=== PATIENT | female | born 1990 | race Caucasian/White ===

== ENCOUNTER 2022-08-24 11:30 | Inpatient (IN) | payer BC, SELFPAY ==
[2022-08-24] VITALS (42 sets, daily range): BP systolic 100–194; BP diastolic 56–140; PULSE 72–105; TEMP 36.4–37.2; O2SAT 96–100; BMI 49.8
[2022-08-24 11:28] LABS: ROM Internal Control Test YES-OK TO RESULT pt. (Internal QC)
[2022-08-24 11:29] LABS: ROM Patient Test POSITIVE (Negative)
[2022-08-24] MEDS: Lactated Ringers 1,000 ML 50 ML IV ×2 (12:35→15:00)
[2022-08-24] MEDS: LACTATED RINGERS 500 ML 999 ML IV ×5 (12:40→23:30)
[2022-08-24 12:54] LABS: Absolute Lymphocyte Count 2.42 X10^3/uL (0.83-4.51); Absolute Neutrophil Count 9.1 X10^3/uL (2.0-7.7); Basophil# 0.04 X10^3/uL; Basophil% 0.3 % (0-1); Eosinophil# 0.07 X10^3/uL; Eosinophils% 0.6 % (0-5); Hematocrit 34.8 % (37-47); Hemoglobin 11.6 g/dL (12.0-15.0); Lymphocyte # 2.42 X10^3/ul (0.83-4.51); Lymphocyte % 19.5 % (19-41); Mean Corp Hgb Conc 33.3 g/dL (32-36); Mean Corpuscular Hgb 28.9 pg (27.0-32.0); Mean Corpuscular Volume 86.6 fL (81-99); Mean Platelet Vol. 9.6 fl (6.2-12.0); Monocyte% 5.7 % (0-10); NRBC Flagged by Analyzer 0 % (0-5); Neutrophil # 9.09 X10^3/uL (2.7-7.7); Neutrophil % 73.4 % (47-70); Platelet Count 319 K/mm3 (150-450); RBC Distribution Width CV 13.4 % (11.6-14.6); RBC Distribution Width SD 42.1 fl (35.1-43.9); Red Blood Count 4.02 M/mm3 (4.2-5.4); White Blood Count 12.4 K/mm3 (4.4-11.0)
[2022-08-24 13:16] LABS: Bedside Glucose 88 mg/dL (74-106)
[2022-08-24] MEDS: Oxytocin 15 Units/NS 250ml 15 UNITS/250 ML IV.SOLN 2 UNITS IV (13:28)
[2022-08-24 13:53] LABS: Syphilis Antibodies Non-reactive
[2022-08-24 14:20] LABS: Bedside Glucose 100 mg/dL (74-106)
[2022-08-24] MEDS: Penicillin G 3,000,000 Units 50 ML 100 UNITS IV ×2 (17:24→21:43)
[2022-08-24 17:50] LABS: Bedside Glucose 81 mg/dL (74-106)
[2022-08-24] MEDS: fentaNYL-bupivacaine (epidural) 100 ML BAG EPIDURAL ×2 (18:45→23:15)
--- NOTE | 2022-08-24 21:05 | PCM.HP.OB ---
HPI - General General Date of Admission: 08/24/22 Date of Service: 08/24/22 Chief Complaint: rupture of membranes HPI Narrative EARL PEREZ, is a 2 para 0-0-1-0 who presents at 37-6/7 weeks with spontaneous rupture membranes. She is having some irregular contractions. She denies any vaginal bleeding or leaking of fluid. She has had good movements. Her has been complicated to date by gestational diabetes class A2, she has been on insulin. Is also been complicated by tobacco use early in the , and maternal obesity. Maternal Data Information Final HUMBERTO: 09/08/22 Gestational age: 37 6/7 PFSH PFSH Home Medications aspirin 81 mg chewable tablet 81 mg PO DAILY 08/24/22 [History Last Taken 08/23/22 10:00] insulin NPH isoph U-100 human 100 unit/mL subcutaneous suspension (Novolin N NPH U-100 Insulin isophane) 36 unit subcut BID 08/24/22 [History Last Taken 08/23/22 22:00] vitamins-iron fumarate 65 mg iron-folic acid 1 mg tablet 1 tab PO DAILY 08/24/22 [History Last Taken 08/23/22 10:00] Allergy/AdvReac Type Severity Reaction Status Date / Time No Known Allergies Allergy Verified 08/24/22 20:50 Social History Smoking Status: Former smoker History Elective abortions Hx Para 0 Spontaneous abortions Hx # Term Pregnancies Ectopic pregnancies Hx # Pregnancies Multiple births # of living children ROS Constitutional Constitutional: Denies fatigue, fever(s) or malaise Eyes Eyes: Denies change in vision ENT HEENT: Denies dizziness or headache(s) Cardiovascular Cardiovascular: Denies chest pain, dyspnea or lightheadedness Respiratory/Chest Respiratory/Chest: Denies cough or dyspnea Gastrointestinal Gastrointestinal: Denies change in bowel habits Genitourinary Genitourinary: Denies burning urination or genital lesions Integumentary Integumentary: Denies rash Neurologic Neurologic: Denies confusion, dizziness, headache(s), numbness or weakness Vital Signs Vital Signs Vital Signs: 08/24/22 10:54 08/24/22 10:54 08/24/22 10:54 Temperature Temperature Source Pulse Rate 92 103 H Blood Pressure 127/65 H BP Systolic 127 BP Diastolic 65 Pulse Ox 08/24/22 10:54 08/24/22 10:55 08/24/22 10:55 Temperature Temperature Source Temporal Pulse Rate Blood Pressure BP Systolic BP Diastolic Pulse Ox 97 97 08/24/22 10:55 08/24/22 13:45 08/24/22 13:45 Temperature 98.0 F Temperature Source Pulse Rate 90 Blood Pressure 122/67 H BP Systolic 122 BP Diastolic 67 Pulse Ox 08/24/22 14:27 08/24/22 14:27 08/24/22 14:32 Temperature Temperature Source Pulse Rate 86 86 Blood Pressure BP Systolic BP Diastolic Pulse Ox 96 08/24/22 14:32 08/24/22 14:37 08/24/22 14:37 Temperature Temperature Source Pulse Rate 72 Blood Pressure BP Systolic BP Diastolic Pulse Ox 97 98 08/24/22 14:42 08/24/22 14:42 08/24/22 16:45 Temperature Temperature Source Pulse Rate 82 Blood Pressure 107/58 L BP Systolic 107 BP Diastolic 58 Pulse Ox 97 08/24/22 16:45 08/24/22 17:45 08/24/22 17:58 Temperature 97.5 F L Temperature Source Pulse Rate 74 Blood Pressure 124/78 H BP Systolic 124 BP Diastolic 78 Pulse Ox 08/24/22 17:58 08/24/22 18:04 08/24/22 18:04 Temperature Temperature Source Pulse Rate 100 95 Blood Pressure 141/76 H BP Systolic 141 BP Diastolic 76 Pulse Ox 08/24/22 18:09 08/24/22 18:09 08/24/22 18:14 Temperature Temperature Source Pulse Rate 96 Blood Pressure 133/70 H 134/81 H BP Systolic 133 134 BP Diastolic 70 81 Pulse Ox 08/24/22 18:14 08/24/22 18:15 08/24/22 18:15 Temperature Temperature Source Pulse Rate 96 82 Blood Pressure BP Systolic BP Diastolic Pulse Ox 97 08/24/22 18:18 08/24/22 18:18 08/24/22 18:20 Temperature Temperature Source Pulse Rate 74 95 Blood Pressure 134/82 H BP Systolic 134 BP Diastolic 82 Pulse Ox 08/24/22 18:20 08/24/22 18:23 08/24/22 18:23 Temperature Temperature Source Pulse Rate 92 Blood Pressure 136/74 H BP Systolic 136 BP Diastolic 74 Pulse Ox 98 08/24/22 18:25 08/24/22 18:25 08/24/22 18:28 Temperature Temperature Source Pulse Rate 95 Blood Pressure 132/68 H BP Systolic 132 BP Diastolic 68 Pulse Ox 98 08/24/22 18:28 08/24/22 18:30 08/24/22 18:30 Temperature Temperature Source Pulse Rate 95 98 Blood Pressure BP Systolic BP Diastolic Pulse Ox 99 08/24/22 18:34 08/24/22 18:34 08/24/22 18:35 Temperature Temperature Source Pulse Rate 105 H 103 H Blood Pressure 118/69 BP Systolic 118 BP Diastolic 69 Pulse Ox 08/24/22 18:35 08/24/22 18:38 08/24/22 18:38 Temperature Temperature Source Pulse Rate 86 Blood Pressure 107/56 L BP Systolic 107 BP Diastolic 56 Pulse Ox 98 08/24/22 18:40 08/24/22 18:40 08/24/22 18:43 Temperature Temperature Source Pulse Rate 91 Blood Pressure 100/56 L BP Systolic 100 BP Diastolic 56 Pulse Ox 99 08/24/22 18:43 08/24/22 18:45 08/24/22 18:45 Temperature Temperature Source Pulse Rate 93 89 Blood Pressure BP Systolic BP Diastolic Pulse Ox 99 08/24/22 18:48 08/24/22 18:48 08/24/22 18:50 Temperature Temperature Source Pulse Rate 94 103 H Blood Pressure 130/58 H BP Systolic 130 BP Diastolic 58 Pulse Ox 08/24/22 18:50 08/24/22 18:54 08/24/22 18:54 Temperature Temperature Source Pulse Rate 98 Blood Pressure 118/59 L BP Systolic 118 BP Diastolic 59 Pulse Ox 100 08/24/22 18:59 08/24/22 18:59 08/24/22 19:22 Temperature Temperature Source Temporal Pulse Rate 99 Blood Pressure 114/65 BP Systolic 114 BP Diastolic 65 Pulse Ox 08/24/22 19:23 08/24/22 19:23 08/24/22 19:22 Temperature 97.7 F L Temperature Source Pulse Rate 87 Blood Pressure BP Systolic BP Diastolic Pulse Ox 99 08/24/22 19:24 08/24/22 19:24 08/24/22 20:10 Temperature Temperature Source Temporal Pulse Rate 87 Blood Pressure 118/60 BP Systolic 118 BP Diastolic 60 Pulse Ox 08/24/22 20:10 08/24/22 20:10 08/24/22 20:10 Temperature Temperature Source Pulse Rate 97 Blood Pressure 117/57 L BP Systolic 117 BP Diastolic 57 Pulse Ox 99 08/24/22 20:10 Temperature 99.0 F Temperature Source Pulse Rate Blood Pressure BP Systolic BP Diastolic Pulse Ox Weight Weight: 127.8 kg Body Mass Index (BMI) 49.8 Physical Exam Const alert and no apparent distress General Appearance: cooperative HEENT normocephalic Resp normal respiratory effort Cardio regular rate GI soft to palpation GI Narrative: gravid, nontender, appropriate for gestational age Extremity no calf tenderness General Extremity: edema Skin no wounds Rashes: No rashes noted Psych activity/motor behavior normal Labs Labs Labs: Blood Type A POSITIVE Antibody Screen NEGATIVE Hct 34.8 % (37-47) L Hgb 11.6 g/dL (12.0-15.0) L Syphilis Total Ab Non-reactive Assessment & Plan (1) 37 weeks gestation of : PLAN: Premature rupture membranes, some irregular contractions. Pitocin augmentation. Estimated weight is for less than 4000 g clinically and by last ultrasound and pelvis clinically adequate to expect vaginal delivery may have epidural as needed for pain control (2) Maternal obesity syndrome in third trimester: (3) PROM (premature rupture of membranes):
[2022-08-24 22:25] LABS: Bedside Glucose 83 mg/dL (74-106)
[2022-08-24 23:00] LABS: Bedside Glucose 81 mg/dL (74-106)
[2022-08-25] VITALS (51 sets, daily range): BP systolic 93–133; BP diastolic 53–71; PULSE 84–139; RESP 16–18; TEMP 36–37.7; O2SAT 93–100
[2022-08-25] MEDS: Lactated Ringers 1,000 ML 200 ML IV (00:09)
--- NOTE | 2022-08-25 00:39 | PLAC_PTH ---
PATIENT: EARL PEREZ LOC: [facility] U#:[id number] AGE/SX: 31/F ROOM: WP016 RE08/24/[address]: Dr. Nerissa Bryant MD : 1990 BED: 1 DIS: 08/26/2022 SPEC #: [id number] RECD: 08/25/22 03:24 STATUS: ALPA RETank #: [id number] BHANU: 08/25/22 00:[address]: Nerissa Bryant DEPT: SURGICAL PATHOLOGY RECD BY: Harika Riley ENTERED: 08/25/22 09:49 SP TYPE: PLACENTA OTHR DR: No Primary Care Phys Tissues: Placenta, NOS Procedures: Surgery Specimen Level V HEADER OPERATION: Vaginal delivery PRE-OP DIAGNOSIS: hemorrhage TISSUE SUBMITTED: Placenta MICROSCOPIC DIAGNOSIS Muse placenta (686 gm): Umbilical cord ? trivascular with mild acute funisitis. Placental membranes ? acute chorioamnionitis and acute deciduitis. Placental disc ? acute vasculitis of superficial placental vessels, Romy-Chad change and increased intraparenchymal fibrin plaques. AM:jeff 08/29/2022 MICROSCOPIC DESCRIPTION Slides are reviewed. GROSS DESCRIPTION SPECIMEN: PLACENTA / CLINICAL INFORMATION: A. Weight: 2.77 kg B. Gestational Age: 38 weeks C. Sex: Female PLACENTAL WEIGHT (POST FIXATION): 686 gm PLACENTAL DIMENSIONS: 24.0 x 15.0 x 5.0 cm. A detached piece of placenta is also present measuring 4.5 x 4.0 x 2.0 cm. PLACENTAL SHAPE: Usual ovoid PLACENTAL WEIGHT FOR GESTATIONAL AGE: Over 99th percentile MEMBRANES ? Present. The membranes are fragmented. A. Insertion: Marginal B. Site of rupture from edge: Appears to rupture at the margin of placental disc C. Color of membrane: Bass-dumont D. Abnormalities: None UMBILICAL CORD ? Present. Also present in the container is a detached segment of umbilical cord measuring 35.0 cm in length. A. Color: Bass-dumont B. Insertion: Paracentral C. Length: 20.0 cm D. Diameter: 1.2 cm E. Number of vessels: Three F. Abnormalities: None PLACENTAL DISC - Present A. Color of surface: Bass-dumont B. surface abnormalities: None C. Maternal cotyledons: Intact with minimal tears D. Attached retro placental clot: No clot E. Cut surface: Dark red and spongy F. Lesions: None G. Separate clot: Absent SECTIONS SUBMITTED: 1. Membrane roll 2. Cord, maternal end 3. Cord, end 4. Placental disc, and maternal surfaces 5. Placental disc, and maternal surfaces 6. Placental disc, and maternal surfaces MAXIMILIANO:jeff 08/26/2022 TC:2 CPT: 14306
[2022-08-25] MEDS: Methylergonovine 0.2 MG/ML Ampul IM (00:47)
[2022-08-25] MEDS: miSOPROStol 200 MCG Tablet 1000 MCG RC (00:48)
[2022-08-25] MEDS: Carboprost Tromethamine 250 MCG/ML Ampul IM (00:57)
[2022-08-25] MEDS: 0.9% Saline Lock 10 ML Syringe IV ×7 (00:58→21:41)
[2022-08-25 01:09] LABS: Absolute Lymphocyte Count 2.27 X10^3/uL (0.83-4.51); Absolute Neutrophil Count 11.5 X10^3/uL (2.0-7.7); Basophil# 0.04 X10^3/uL; Basophil% 0.3 % (0-1); Eosinophil# 0.02 X10^3/uL; Eosinophils% 0.1 % (0-5); Hematocrit 31.9 % (37-47); Hemoglobin 10.5 g/dL (12.0-15.0); Lymphocyte # 2.27 X10^3/ul (0.83-4.51); Lymphocyte % 15.5 % (19-41); Mean Corp Hgb Conc 32.9 g/dL (32-36); Mean Corpuscular Hgb 28.7 pg (27.0-32.0); Mean Corpuscular Volume 87.2 fL (81-99); Mean Platelet Vol. 9.4 fl (6.2-12.0); Monocyte# 0.73 X10^3/uL; NRBC Flagged by Analyzer 0 % (0-5); Neutrophil # 11.54 X10^3/uL (2.7-7.7); Neutrophil % 78.6 % (47-70); Platelet Count 288 K/mm3 (150-450); RBC Distribution Width CV 13.2 % (11.6-14.6); RBC Distribution Width SD 41.8 fl (35.1-43.9); Red Blood Count 3.66 M/mm3 (4.2-5.4); White Blood Count 14.7 K/mm3 (4.4-11.0)
[2022-08-25] MEDS: 0.9% Normal Saline 1,000 ML 999 ML INTRA-UTER (01:10)
[2022-08-25] MEDS: Oxytocin 15 Units/NS 250ml 15 UNITS/250 ML IV.SOLN 83 UNITS IV (01:13)
[2022-08-25 01:18] LABS: International Normalized Ratio 1.1; Prothrombin Time (Protime)PT. 13.9 SECONDS (11.7-14.9)
[2022-08-25 01:19] LABS: Fibrinogen 613 mg/dl (203-444)
--- NOTE | 2022-08-25 01:37 | OP.PCM_ITS ---
Assessment & Plan (1) (spontaneous vaginal delivery): (2) Single live : (3) Second degree perineal laceration: (4) hemorrhage: (5) Uterine atony: Maternal Data Information Final HUMBERTO: 09/08/22 Gestational age: 38 0/7 Vaginal Delivery Maternal Presentation Maternal Presentation: Spontaneous Rupture of Membranes Type of Induction: Pitocin Operative Information Date of Procedure: 08/25/22 Pre-Operative Diagnosis: labor Post-Operative Diagnosis: same, hemorrhage due to atony and perineal laceratoin Surgery / Procedure Performed: Spontaneous Vaginal Delivery Type of Anesthesia: Epidural Special Medications: none Drain: [place] to straight drain Estimated Blood Loss: 1500 Time of Delivery: 00:39 Findings Description of Procedure: A vigorous female was delivered ROP over a second-degree perineal laceration. The tight nuchal cord x2 was reduced. The remainder the was delivered with maternal pushing and gentle traction only in less than 15 seconds. The Pitocin infusion was initiated for active management of the third stage. The cord was clamped and cut after 1 minute. The was attended to by the waiting nursing staff. The placenta started to deliver spontaneously. However, 1 edge of the placenta was somewhat adherent. It was teased out with manual extraction. It was noted immediately that there was atony. I reached up in an evacuated the uterus manually with a sponge in my hand and obtained sever al pieces small pieces of membranes. The patient was given Methergine x1 and I asked for Cytotec to be brought to the room. We continued fundal massage and I evacuated the uterus. I do not see any cervical tears. There is some brisk bleeding from the perineal laceration as well but I was unable to repair that until the atony was under control. Cytotec was placed rectally. I then asked for an ultrasound and it appeared that there was some heterogeneous debris in the uterus. A brief banjo curettage was done and small amount of membranes was removed. The bright white stripe was noted and the uterus would be firm but then immediately fell up with blood again. We continued fundal massage. Trans extended acid was ordered and Hemabate was also ordered. I then asked for the back of the balloon it was placed and inflated in the usual sterile fashion with 360 cc of normal saline. At that point the uterine atony seem to be controlled. I initiated repair of the second-degree perineal laceration. I then identified a big actively bleeding blood vessel in the laceration. Several [id number] 2-0 Vicryl sutures were placed around this to obtain hemostasis. The remainder of the second-degree laceration was repaired with 3-0 Vicryl repeat in 2-0 Vicryl suture in a running standard fashion. There is still some oozing around the stitches at the end of the repair but no active bleeding. Houston catheter remained in place. I packed the vagina with 1 laparotomy sponge.. The cervix and vagina were intact. Sponge and needle counts were correct. A vaginal sweep was completed by me. Presentation: ROP Amniotic Membrane Rupture Type: Spontaneous Amniotic Fluid Description: Clear Placental Delivery Description: Spontaneous and Curettage Placenta Disposition: Sent to Pathology Cord Vessel Description: 3 Vessels Cord Entanglement: Around neck x 2, tight Nuchal Cord Compression: With compression Cord Gases: ABG and VBG Infant A Gender: Female (1 minute): 6 (5 minute): 8 Delayed Cord Clamping: Yes Post Vaginal Delivery Medications Given After Delivery: IV Pitocin, IM Methergin, IM Hemabate and - (IV transexemic acid and rectal cytotec) Episiotomy Description: None Laceration: 2nd degree Complication Complications: - (atony with hemorrhage)
[2022-08-25] MEDS: Ondansetron 4 MG/2 ML Vial IV (01:38)
[2022-08-25 02:36] LABS: Bedside Glucose 87 mg/dL (74-106)
[2022-08-25 02:36] LABS: Bedside Glucose 85 mg/dL (74-106)
[2022-08-25 04:06] LABS: Bedside Glucose 118 mg/dL (74-106)
[2022-08-25] MEDS: Acetaminophen 500 MG Tablet 1000 MG PO ×2 (05:45→11:13)
[2022-08-25 05:56] LABS: Absolute Lymphocyte Count 2.07 X10^3/uL (0.83-4.51); Absolute Neutrophil Count 16.5 X10^3/uL (2.0-7.7); Basophil# 0.05 X10^3/uL; Basophil% 0.3 % (0-1); Eosinophil# 0.01 X10^3/uL; Eosinophils% 0.1 % (0-5); Hematocrit 29.9 % (37-47); Hemoglobin 9.9 g/dL (12.0-15.0); Lymphocyte # 2.07 X10^3/ul (0.83-4.51); Lymphocyte % 10.4 % (19-41); Mean Corp Hgb Conc 33.1 g/dL (32-36); Mean Corpuscular Hgb 28.9 pg (27.0-32.0); Mean Corpuscular Volume 87.4 fL (81-99); Mean Platelet Vol. 9.5 fl (6.2-12.0); Monocyte# 1.02 X10^3/uL; Monocyte% 5.1 % (0-10); NRBC Flagged by Analyzer 0 % (0-5); Neutrophil # 16.54 X10^3/uL (2.7-7.7); Neutrophil % 83.5 % (47-70); Platelet Count 287 K/mm3 (150-450); RBC Distribution Width CV 13.2 % (11.6-14.6); Red Blood Count 3.42 M/mm3 (4.2-5.4); White Blood Count 19.8 K/mm3 (4.4-11.0)
--- NOTE | 2022-08-25 07:25 | NURSING ---
bedside report given to Yakelin Montague RN who is assuming care of pt at this time
[2022-08-25] MEDS: Cefazolin 1 GM/50 ML BAG IV ×2 (07:41→13:13)
--- NOTE | 2022-08-25 08:17 | PN_ITS ---
Subjective Subjective patient seen at bedside, doing well. Patient reports good pain control. lochia mild. denies CP, SOB, dizziness. Objective Data Objective Data Vital Signs: Vital Signs Temp Pulse Resp BP Pulse Ox O2 Del Method 97.6 F L 113 H 16 117/69 97 Room Air 08/25/22 07:40 08/25/22 07:40 08/25/22 07:40 08/25/22 07:40 08/25/22 07:40 08/25/22 07:40 Oxygen Delivery Method Room Air Weight: 127.8 kg Body Mass Index (BMI) 49.8 Intake & Output: Intake and Output for Last 24 Hours 08/23/22 08/24/22 08/25/22 23:59 23:59 23:59 Intake Total 2282.86 / 2282.86 3266.94 / 3266.94 Output Total 760 / 760 2150 / 2150 Balance 1522.86 / 1522.86 1116.94 / 1116.94 Lab / Micro Data Result Diagrams: 08/25/22 05:45 Labs: Laboratory Results - last 24 hr 08/24/22 11:12: Vag Amniotic Fld Detect POSITIVE H 08/24/22 12:30: WBC 12.4 H, RBC 4.02 L, Hgb 11.6 L, Hct 34.8 L, MCV 86.6, MCH 28.9, MCHC 33.3, RDW Std Deviation 42.1, RDW Coeff of Abigail 13.4, Plt Count 319, MPV 9.6, Immature Gran % (Auto) 0.500, Neut % (Auto) 73.4 H, Lymph % (Auto) 19.5, Randolph % (Auto) 5.7, Eos % (Auto) 0.6, Baso % (Auto) 0.3, Absolute Neuts (auto) 9.1 H, Absolute Lymphs (auto) 2.42, Nucleated RBC % 0 08/24/22 12:30: Blood Type A POSITIVE, Antibody Screen NEGATIVE 08/24/22 12:30: Syphilis Total Ab Non-reactive 08/24/22 12:30: Crossmatch See Detail 08/24/22 12:50: POC Glucose 88 08/24/22 13:57: POC Glucose 100 08/24/22 17:32: POC Glucose 81 08/24/22 21:20: POC Glucose 83 08/24/22 22:23: POC Glucose 81 08/24/22 23:25: POC Glucose 85 08/25/22 00:16: POC Glucose 87 08/25/22 01:00: WBC 14.7 H, RBC 3.66 L, Hgb 10.5 L, Hct 31.9 L, MCV 87.2, MCH 28.7, MCHC 32.9, RDW Std Deviation 41.8, RDW Coeff of Abigail 13.2, Plt Count 288, MPV 9.4, Immature Gran % (Auto) 0.500, Neut % (Auto) 78.6 H, Lymph % (Auto) 15.5 L, Randolph % (Auto) 5.0, Eos % (Auto) 0.1, Baso % (Auto) 0.3, Absolute Neuts (auto) 11.5 H, Absolute Lymphs (auto) 2.27, Nucleated RBC % 0 08/25/22 01:00: PT 13.9, INR 1.1, Fibrinogen 613 H 08/25/22 02:22: POC Glucose 118 H 08/25/22 05:45: WBC 19.8 H, RBC 3.42 L, Hgb 9.9 L, Hct 29.9 L, MCV 87.4, MCH 28.9, MCHC 33.1, RDW Std Deviation 42.0, RDW Coeff of Abigail 13.2, Plt Count 287, MPV 9.5, Immature Gran % (Auto) 0.600, Neut % (Auto) 83.5 H, Lymph % (Auto) 10.4 L, Randolph % (Auto) 5.1, Eos % (Auto) 0.1, Baso % (Auto) 0.3, Absolute Neuts (auto) 16.5 H, Absolute Lymphs (auto) 2.07, Nucleated RBC % 0 Physical Exam Const alert and oriented x3 General Appearance: cooperative HEENT normocephalic Neck General: normal visual inspection GI soft to palpation and non-distended GI Narrative: Fundus firm Extremity normal to inspection and no calf tenderness Skin no rashes or lesions noted Neuro oriented x3 and CN's II-XII intact bilaterally Psych mental status grossly normal Assessment & Plan Assessment/Plan (1) Uterine atony: (2) hemorrhage: (3) Second degree perineal laceration: (4) Single live : (5) (spontaneous vaginal delivery): (6) Gestational diabetes requiring insulin: (7) Maternal obesity syndrome in third trimester: PLAN: Plan PPD# 1 , Doing well- s/o hemorrhage due to uterine atony - acute blood loss anemia Routine care pain mgmt ambulation vaginal packing removed this morning. Bakri uterine balloon in place-at 1pm will start slowly removing fluid 50cc/hr until balloon out. recheck CBC at 6pm
[2022-08-25 18:39] LABS: Absolute Neutrophil Count 11.8 X10^3/uL (2.0-7.7); Basophil# 0.08 X10^3/uL; Basophil% 0.4 % (0-1); Eosinophil# 0.14 X10^3/uL; Eosinophils% 0.8 % (0-5); Hematocrit 28.2 % (37-47); Hemoglobin 9.3 g/dL (12.0-15.0); Lymphocyte % 28.2 % (19-41); Mean Corpuscular Hgb 28.6 pg (27.0-32.0); Mean Corpuscular Volume 86.8 fL (81-99); Mean Platelet Vol. 9.5 fl (6.2-12.0); Monocyte# 0.86 X10^3/uL; Monocyte% 4.8 % (0-10); NRBC Flagged by Analyzer 0 % (0-5); Neutrophil # 11.77 X10^3/uL (2.7-7.7); Neutrophil % 65.1 % (47-70); POSITIVE DIFFERENTIAL YES; Platelet Count 357 K/mm3 (150-450); RBC Distribution Width CV 13.4 % (11.6-14.6); RBC Distribution Width SD 42.2 fl (35.1-43.9); Red Blood Count 3.25 M/mm3 (4.2-5.4); White Blood Count 18.1 K/mm3 (4.4-11.0)
[2022-08-25 18:48] LABS: Differential Indicated SCAN CRITERIA MET
[2022-08-25 19:46] LABS: Differential Comment SCANNED
[2022-08-26] VITALS (8 sets, daily range): BP systolic 117–133; BP diastolic 63–84; PULSE 93–109; RESP 16–20; TEMP 36.1–37.2; O2SAT 97
[2022-08-26 04:43] LABS: Hematocrit 25.5 % (37-47); Hemoglobin 8.3 g/dL (12.0-15.0); Mean Corp Hgb Conc 32.5 g/dL (32-36); Mean Corpuscular Hgb 28.9 pg (27.0-32.0); Mean Corpuscular Volume 88.9 fL (81-99); Mean Platelet Vol. 9.4 fl (6.2-12.0); Platelet Count 295 K/mm3 (150-450); RBC Distribution Width CV 13.5 % (11.6-14.6); RBC Distribution Width SD 43.8 fl (35.1-43.9); Red Blood Count 2.87 M/mm3 (4.2-5.4); White Blood Count 14.3 K/mm3 (4.4-11.0)
[2022-08-26 06:01] LABS: Bedside Glucose 104 mg/dL (74-106)
--- NOTE | 2022-08-26 08:44 | PN.OBGYN_ITS ---
Subjective Subjective Patient seen at bedside. infant. Denies headache, dizziness, SOB , or CP. Ambulating and voiding without difficulty. Lochia decreased. Not passing any clots. Desires discharge home later today. Objective Data Objective Data Vital Signs: Vital Signs Temp Pulse Resp BP Pulse Ox O2 Del Method 97.0 F L 93 18 117/66 97 Room Air 08/26/22 08:13 08/26/22 08:13 08/26/22 08:13 08/26/22 08:13 08/26/22 08:13 08/26/22 08:13 Oxygen Delivery Method Room Air Weight: 281 lb 12.012 oz Body Mass Index (BMI) 49.8 Intake & Output: Intake and Output for Last 24 Hours 08/24/22 08/25/22 08/26/22 23:59 23:59 23:59 Intake Total 2282.86 / 2282.86 3366.94 / 3366.94 Output Total 760 / 760 4560 / 4560 200 / 200 Balance 1522.86 / 1522.86 -1193.06 / -1193.06 -200 / -200 Lab / Micro Data Result Diagrams: 08/26/22 04:35 Labs: Laboratory Results - last 24 hr 08/25/22 18:20: WBC 18.1 H, RBC 3.25 L, Hgb 9.3 L, Hct 28.2 L, MCV 86.8, MCH 28.6, MCHC 33.0, RDW Std Deviation 42.2, RDW Coeff of Abigail 13.4, Plt Count 357, MPV 9.5, Immature Gran % (Auto) 0.700, Neut % (Auto) 65.1, Lymph % (Auto) 28.2, Nobles % (Auto) 4.8, Eos % (Auto) 0.8, Baso % (Auto) 0.4, Absolute Neuts (auto) 11.8 H, Absolute Lymphs (auto) 5.10 H, Nucleated RBC % 0, Differential Comment SCANNED 08/26/22 04:35: WBC 14.3 H, RBC 2.87 L, Hgb 8.3 L, Hct 25.5 L, MCV 88.9, MCH 28.9, MCHC 32.5, RDW Std Deviation 43.8, RDW Coeff of Abigail 13.5, Plt Count 295, MPV 9.4 08/26/22 05:33: POC Glucose 104 ROS Eyes Eyes: Denies blurry vision, change in vision or spots in vision ENT HEENT: Denies dizziness or headache(s) Cardiovascular Cardiovascular: Denies abdominal pain, chest pain or dyspnea Respiratory/Chest Respiratory/Chest: Denies cough, dyspnea, shortness of breath at rest or shortness of breath with exertion Gastrointestinal Gastrointestinal: Denies abdominal pain, diarrhea or vomiting Genitourinary Genitourinary: Denies change in urinary stream, difficulty urinating or dysuria Musculoskeletal Musculoskeletal: Reports none Integumentary Integumentary: Denies rash Neurologic Neurologic: Denies dizziness, headache(s), memory loss or weakness Physical Exam Const alert and no apparent distress General Appearance: cooperative and comfortable Exam Limitations: no limitations HEENT normocephalic Eyes General Eye: normal appearance of both eyes Neck full ROM General: normal visual inspection Chest Chest: symmetrical chest wall rise Resp normal respiratory effort and normal air movement Effort and Inspection: symmetric chest movement Auscultation: clear to auscultation bilaterally Cardio regular rate and regular rhythm GI normal to inspection, nondistended, normoactive bowel sounds Back/Spine normal ROM Extremity full ROM and no calf tenderness General Extremity: normal exam except as noted Skin no rashes or lesions noted Neuro CN's II-XII intact bilaterally Psych mental status grossly normal Assessment & Plan (1) Gestational diabetes requiring insulin: (2) Uterine atony: (3) hemorrhage: (4) Second degree perineal laceration: (5) Single live : (6) (spontaneous vaginal delivery): (7) Maternal obesity syndrome in third trimester: PLAN: Plan PPD 2 BS fasting normal- 104 Hgb. 8.3 today- asymptomatic Continue oral iron supplementation support D/C home with follow up in office next week
--- NOTE | 2022-08-26 08:48 | DCINST_ITS ---
Discharge Instructions Diet Discharge Diet: No restrictions Activity Discharge Activity: Return to Normal Activity, May Shower and May Take a Tub Bath May resume sexual activity in: 4-6 weeks Weight Bearing Status: Weight bearing as tolerated Dressing / Incision Call your doctor if you observe: Inability to urinate, Using more than 1 pad per hour, Shortness of breath, Dizziness, Swelling in the ankles, Chest pain, Calf discomfort and Uncontrolled pain Follow Up Care When: Within 10 days Test Results: Test results from this visit will be discussed in further detail at your follow- up appointment, if applicable. Discharge Plan Admission Admit Date/Time: 08/24/22 11:30 Attending Provider: Nerissa Bryant Primary Care Provider: Care Physician,Aneta Primary Discharge Orders/Prescriptions Prescriptions: New ferrous sulfate 325 mg (65 mg iron) tablet 325 mg PO BID Qty: 60 0RF Continued vit-iron fum-folic ac 65 mg iron- 1 mg Tablet 1 tab PO DAILY Discontinued aspirin [Baby Aspirin] 81 mg Tablet,Chewable 81 mg PO DAILY Novolin N NPH U-100 Insulin 100 unit/mL Suspension 36 unit SUBCUT BID Referrals / Follow Up: Care Physician,No Primary [Primary Care Provider] - Disposition Disposition (needs filled in before D/C Order can be placed): Home, Self Care
[2022-08-31 05:49] LABS: Pathology Specimen OB SEE PATHOLOGY REPORT
== END 2022-08-26 13:40 | disposition home or self-care (01) | DRG 768 ==
LOC: WPOUT 11:35 → WP 11:35
PROVIDERS: Obstetrics & Gynecology; Admitting Provider Obstetrics & Gynecology; Visit Provider Obstetrics & Gynecology
DX: O24.424 Gestational diabetes mellitus in childbirth, insulin controlled (principal); Z37.0 Single live birth; D62 Acute posthemorrhagic anemia; O72.1 Other immediate postpartum hemorrhage; Z79.4 Long term (current) use of insulin; O90.81 Anemia of the puerperium; O69.2XX0 Labor and delivery complicated by other cord entanglement, with compression, not applicable or unspecified; Z3A.37 37 weeks gestation of pregnancy; Z87.891 Personal history of nicotine dependence; O70.1 Second degree perineal laceration during delivery; Z79.82 Long term (current) use of aspirin; O26.03 Excessive weight gain in pregnancy, third trimester; O42.92 Full-term premature rupture of membranes, unspecified as to length of time between rupture and onset of labor
CPT/HCPCS: 59025; 59050; 82962; 84112; 85025; 85027; 85384; 85610; 86780; 86850; 86900; 86901; 86920; 88307; 99221; J7030; J7120; A4216; G0378; J2405